=== PATIENT | female | born 1945 | race Hispanic/Latino ===

== ENCOUNTER 2017-10-06 21:30 | Emergency (ER) | payer MEDICARE ==
[~2017-10-06] VITALS: Ht 162.6 cm; Wt 96.2 kg
[2017-10-06] MEDS ORDERED: PANTOPRAZOLE 40 MG 10ML VIAL IV STA (22:04)
[2017-10-06] MEDS ORDERED: ONDANSETRON HCL INJ 2 MG/ML VIAL IV STA (22:04)
[2017-10-06 22:14] LABS: BASOPHILS % 0.6 % (0.0-1.0); EOSINOPHILS # (AUTO) 0.2 (0.0-0.4); EOSINOPHILS % 3.3 % (0.0-6.0); HEMOGLOBIN 14.4 g/dL (12.0-16.0); LYMPHOCYTES # (AUTO) 2.3 (1.0-3.2); LYMPHOCYTES % 34.3 % (18.0-39.1); MEAN CORPUSCULAR HGB CONC 34.3 g/dL (31-35); MEAN CORPUSCULAR VOLUME 90.3 fL (81-99); MONOCYTES # (AUTO) 0.6 (0.2-0.8); NEUTROPHILS # (AUTO) 3.5 (2.1-6.9); NEUTROPHILS % 52.5 % (38.7-80.0); PLATELET COUNT 180 x10e3/uL (140-360); RED BLOOD COUNT 4.65 x10e6/uL (3.6-5.1); RED CELL DISTRIBUTION WIDTH 13.8 % (11.7-14.4)
[2017-10-06 22:15] LABS: BILIRUBIN,URINE NEGATIVE (NEGATIVE); CLARITY,URINE CLEAR (CLEAR); COLOR,URINE YELLOW (YELLOW); KETONES,URINE NEGATIVE (NEGATIVE); LEUKOCYTE ESTERASE ,URINE 1+ (NEGATIVE); NITRITE,URINE NEGATIVE (NEGATIVE); PROTEIN,URINE DIPSTICK NEGATIVE (NEGATIVE); URINE UROBILINOGEN 0.2 mg/dL (0.2 - 1)
[2017-10-06 22:18] LABS: INR 1.09; PROTHROMBIN TIME 13.3 seconds (11.9-14.5)
[2017-10-06 22:19] LABS: PARTIAL THROMBOPLASTIN TIME 38.1 seconds (23.8-35.5)
[2017-10-06] MEDS ORDERED: LEVOTHYROXINE50 MCG PO (22:22)
[2017-10-06] MEDS ORDERED: METOPROLOL SUCC50 MG PO (22:22)
[2017-10-06 22:29] LABS: ALANINE AMINOTRANSFERASE 16 IU/L (0-55); ALBUMIN 4.3 g/dL (3.5-5.0); ALBUMIN/GLOBULIN RATIO 1.6 (0.8-2.0); ALKALINE PHOSPHATASE 77 IU/L (40-150); AMYLASE 128 U/L (25-125); BLOOD UREA NITROGEN 13 mg/dL (7-26); BUN/CREATININE RATIO 18 (6-25); CALCIUM 8.9 mg/dL (8.4-10.2); CARBON DIOXIDE 30 mmol/L (22-29); CHLORIDE 102 mmol/L (98-107); CREATINE KINASE 67 IU/L (29-168); CREATININE, SERUM 0.74 mg/dL (0.57-1.11); EST GLOMERULAR FILTRATION RATE > 60 ML/MIN (60-); GLUCOSE 93 mg/dL (74-118); LIPASE 146 U/L (8-78); MAGNESIUM 2.2 MG/DL (1.3-2.1); SODIUM 140 mmol/L (136-145)
[2017-10-06 22:33] LABS: BACTERIA,URINE RARE /HPF; EPITHELIAL CELLS,URINE FEW /LPF; RBC,URINE 0-5 /HPF (0-5)
[2017-10-06 22:37] LABS: B-TYPE NATRIURETIC PEPTIDE2 12.2 pg/mL (0-100)
[2017-10-06 22:48] LABS: THYROID STIMULATING HORMONE 1.164 uIU/mL (0.350-4.940)
[2017-10-06] MEDS ORDERED: SODIUM CHLORIDE 0.9% 50ML 50 ML ONE (23:08)
[2017-10-06] MEDS ORDERED: IOPAMIDOL 370 MG/ML 200 ML INFUS..BTL INJ ONE (23:08)
--- NOTE | 2017-10-06 23:21 | Diagnostic Imaging Report ---
CHEST 2 VIEWS, Technique: CHEST 2 VIEWS Comparison: None Clinical history: \S\SOB, ABD PAIN ABDOULAYE/LUQ \[id number] \S\[id number] DISCUSSION: Remarkable appearance of the heart, mediastinum, lungs and pleural spaces. IMPRESSION: No acute abnormality Signed by: Dr Sunshine Escalera MD on 10/06/2017 11:17 PM
--- NOTE | 2017-10-07 00:11 | Diagnostic Imaging Report ---
EXAM: CT ABDOMEN/PELVIS WO DATE: 10/06/2017 10:04 PM INDICATION: \S\ABDOULAYE/LUQ PAIN W/SOB, SM REDUC UMBIL HERNIA, ? HIATAL \[id number] \S\[id number] COMPARISON: None TECHNIQUE: The abdomen and pelvis were scanned using a multidetector helical scanner. Coronal and sagittal reformations were obtained. Routine protocol performed. IV Contrast: 0 ml Isovue 370 FINDINGS: Lack of IV contrast decreases sensitivity in evaluating abdominal and pelvic organs. LOWER THORAX: Calcified right lower lobe granuloma. LIVER/BILIARY: Subcentimeter hypodense lesion in the left liver on image 21, incompletely characterized but possibly a cyst GALLBLADDER: Not visualized SPLEEN: Unremarkable PANCREAS: Unremarkable ADRENALS: No nodules KIDNEYS: No hydronephrosis or stones. Multifocal bilateral renal cortical scarring. GI TRACT: No hiatal hernia seen. No wall thickening or evidence of obstruction. Moderate stool burden. Appendix is not visualized. VESSELS: Mild atherosclerotic calcification PERITONEUM/RETROPERITONEUM: No free air or fluid LYMPH NODES: No lymphadenopathy REPRODUCTIVE ORGANS/BLADDER: Status post hysterectomy. SOFT TISSUES: Small fat-containing umbilical/periumbilical hernia. BONES: Multilevel degenerative changes IMPRESSION: Moderate stool burden. Otherwise no acute abnormality on noncontrast evaluation. Signed by: Dr Sunshine Escalera MD on 10/07/2017 12:08 AM
[2017-10-07 00:57] VITALS: BP 138/68
== END 2017-10-07 01:07 | disposition home or self-care (01) ==
LOC: ER 21:30
DX: R06.09 Other forms of dyspnea (principal); K21.0 Gastro-esophageal reflux disease with esophagitis; K59.00 Constipation, unspecified
CPT/HCPCS: 36415; 71046; 74176; 80053; 81001; 82150; 82550; 82553; 83605; 83690; 83735; 83880; 84443; 84484; 85025; 85610; 85730; 87040; 87086; 93005; 99284; J2405; Q9967